=== PATIENT | female | born 1990 | race Asian ===

== ENCOUNTER 2020-08-29 22:30 | Emergency (ER) | payer BC, MEDICARE ==
[~2020-08-29] VITALS: Ht 149.9 cm; Wt 75.0 kg
[~2020-08-29 22:30] MED LIST: ALBU8.5H8 IH; ALBU8HFA IH
[2020-08-30] MEDS ORDERED: ALBUTEROL SULFATE 5 MG/ML 20 ML NEB SOLN [BULK] NEB ONE ×2 (00:30→02:00)
[2020-08-30] MEDS ORDERED: 0.9% SODIUM CHLORIDE 15 ML NEB SOLUTION NEB ONE (00:41)
[2020-08-30] MEDS ORDERED: PredniSONE 20 MG TABLET PO ONE (01:15)
[2020-08-30] MEDS ORDERED: 0.9% SODIUM CHLORIDE 5 ML NEB SOLUTION NEB ONE (02:18)
[2020-08-30 02:50] VITALS: BP 123/77
== END 2020-08-30 03:24 | disposition home or self-care (01) ==
LOC: EMS 22:32
DX: J45.909 Unspecified asthma, uncomplicated (principal)
CPT/HCPCS: 36415; 71045; 84702; 94640; 94644; 99291; J7512; J7611